=== PATIENT | male | born 1940 | race Two or more races ===

== ENCOUNTER 2022-09-29 18:33 | Inpatient (IN) | payer MEDICARE, OTHER ==
[~2022-09-29] VITALS: Ht 167.6 cm; Wt 82.1 kg
--- NOTE | 2022-09-29 18:48 | NUR ---
assume patient care, sent from [facility]. per ems report, here for medical and crisis eval for "failure to thrive' pt is aao, denies any discomfort upon initial assessment. stable vitals. awaiting md eval.
--- NOTE | 2022-09-29 19:13 | NUR ---
report to sage petty for edison.
--- NOTE | 2022-09-29 19:20 | NUR ---
MOVE SHEET SUBMITTED.
[2022-09-29 19:40] LABS: BASOPHILS # (AUTO) 0.1 K/uL (0.0-0.2); BASOPHILS % (AUTO) 0.8 % (0.0-2.0); HEMATOCRIT 45 % (39-51); HEMOGLOBIN 15.1 g/dL (13.5-17.5); LYMPHOCYTES # (AUTO) 1.7 K/uL (0.8-4.8); LYMPHOCYTES % (AUTO) 20.4 % (20.0-44.0); MEAN CORPUSCULAR HGB CONC 33 g/dl (31.0-36.0); MEAN CORPUSCULAR VOLUME 85 fL (80-96); MONOCYTES # (AUTO) 0.5 K/uL (0.1-1.30); MONOCYTES % (AUTO) 5.9 % (2.0-12.0); NEUTROPHILS # (AUTO) 5.8 K/uL (1.8-8.9); NEUTROPHILS % (AUTO) 70.9 % (43.0-81.0); PLATELET COUNT (AUTO) 225 K/uL (150-450); RED BLOOD CELL COUNT(AUTO) 5.33 MIL/uL (4.5-6.0); WHITE BLOOD COUNT (AUTO) 8.2 K/uL (4.3-11.0)
[2022-09-29 19:48] LABS: CALCIUM, SERUM 9.4 mg/dL (8.5-10.1); CARBON DIOXIDE 25 mmol/L (21-32); CHLORIDE 108 mmol/L (98-107); CREATININE 0.9 mg/dL (0.6-1.3); GLUCOSE 98 mg/dL (74-106); POTASSIUM 4.1 mmol/L (3.5-5.1); SODIUM SERUM 142 mmol/L (136-145); UREA NITROGEN, BLOOD 24 mg/dL (7-18)
[2022-09-29 19:49] LABS: MAGNESIUM 2.3 mg/dL (1.8-2.4)
[2022-09-29] MEDS ORDERED: ONDANSETRON HCL/PF 4 MG/2 ML VIAL IVP PRN (20:30)
[2022-09-29] MEDS ORDERED: ACETAMINOPHEN 325 MG TABLET PO PRN (20:30)
[2022-09-29] MEDS ORDERED: MAG HYDROX/AL HYDROX/SIMETH 30 ML UDC PO PRN (20:30)
[2022-09-29] MEDS ORDERED: MAGNESIUM HYDROXIDE 30 ML UDC PO PRN (20:30)
[2022-09-29] MEDS ORDERED: TEMAZEPAM 15 MG CAPSULE PO PRN (20:30)
[2022-09-29] MEDS ORDERED: Z GUARD REMEDY 4 OZ OINT TP PRN (20:30)
[2022-09-29] MEDS ORDERED: HYDROCODONE/APAP 5/325MG TABLET PO PRN (20:30)
--- NOTE | 2022-09-29 21:48 | NUR ---
REPORT GIVEN TO KAL KHAN
--- NOTE | 2022-09-29 22:05 | NUR ---
MS RN ADMITTING NOTES RECEIVED PATIENT VIA STRETCHER. PATIENT IS AWAKE, A/O X3 WITH EPISODE OF FORGETFULNESS. ABLE TO MAKE NEEDS KNOWN. PATIENT IS ON ROOM AIR TOLERATING WELL, NO SIGNS OF SOB, NOT IN DISTRESS NOTED. PATIENT DENIES ANY PAIN OR DISCOMFORT AT THE MOMENT. SKIN ASSESSMENT IS DONE; NOTED TO HAVE SOME SKIN ISSUE PRESENT DURING ADMISSION. PHOTO OF THE SKIN ISSUE IS DOCUMENTED IN THE CHART WITH PATIENTS CONSENT TO DO BODY CHECK AND TAKE DOCUMENTATION OF THE SKIN ISSUE. PRESENCE OF BILATERAL FOOT EDEMA NOTED TO BE PITTING +1 ON BOTH FEET. BOWEL SOUNDS ACTIVE, LUNG SOUNDS IS CLEAR. IV ACCESS ON LEFT WRIST GAUGE #20 INFUSING 0.9% NS @ 75ML/HR ORDERED BY THE DOCTOR. PATIENT IS ORIENTED TO THE ROOM AND HOW TO USE THE CALL LIGHT. PATIENT VERBALIZES UNDERSTANDING. ALL PATIENT BELONGINGS ARE ACCOUNTED FOR. SAFETY MEASURE IN PLACED; BED LOCKED AND IN LOWEST POSITION, SIDE RAILS UP X3, BED ALARM ON, HOB ELEVATED, CALL LIGHT AND BEDSIDE TABLE WITHIN PATIENT REACH.
[2022-09-29] MEDS: IV NS 0.9% 1,000 ML IV PRN (22:37)
--- NOTE | 2022-09-30 03:50 | NUR ---
RN NOTES PATIENT NEEDS CONSTANT REORIENTATION.
[2022-09-30 06:57] LABS: BASOPHILS % (AUTO) 0.5 % (0.0-2.0); EOSINOPHILS % (AUTO) 1.4 % (0.0-6.0); HEMATOCRIT 43 % (39-51); HEMOGLOBIN 14.3 g/dL (13.5-17.5); LYMPHOCYTES # (AUTO) 1.3 K/uL (0.8-4.8); LYMPHOCYTES % (AUTO) 18.6 % (20.0-44.0); MEAN CORPUSCULAR HGB CONC 33 g/dl (31.0-36.0); MEAN CORPUSCULAR VOLUME 86 fL (80-96); MONOCYTES # (AUTO) 0.4 K/uL (0.1-1.30); MONOCYTES % (AUTO) 6.4 % (2.0-12.0); NEUTROPHILS # (AUTO) 5.1 K/uL (1.8-8.9); NEUTROPHILS % (AUTO) 73.1 % (43.0-81.0); PLATELET COUNT (AUTO) 208 K/uL (150-450); RED BLOOD CELL COUNT(AUTO) 5.03 MIL/uL (4.5-6.0)
--- NOTE | 2022-09-30 07:12 | NUR ---
MS RN CLOSING NOTES PATIENT ON BED. PATIENT IS AWAKE, A/O X3 WITH EPISODE OF FORGETFULNESS. ABLE TO MAKE NEEDS KNOWN. PATIENT IS ON ROOM AIR TOLERATING WELL, NO SIGNS OF SOB, NOT IN DISTRESS NOTED. PATIENT DENIES ANY PAIN OR DISCOMFORT AT THE MOMENT. ALL DUE MEDICATION IS GIVEN ORDERED. PRESENCE OF BILATERAL FOOT EDEMA NOTED TO BE PITTING +1 ON BOTH FEET. IV ACCESS ON LEFT WRIST GAUGE #20 INFUSING 0.9% NS @ 75ML/HR. SAFETY MEASURE IN PLACED; BED LOCKED AND IN LOWEST POSITION, SIDE RAILS UP X3, BED ALARM ON, HOB ELEVATED, CALL LIGHT AND BEDSIDE TABLE WITHIN PATIENT REACH. WILL ENDORSE TO NEXT SHIFT NURSE FOR CONTINUITY OF CARE.
[2022-09-30] MEDS: PANTOPRAZOLE 40 MG TABLET.DR PO SCH (07:22)
[2022-09-30 07:23] LABS: CALCIUM, SERUM 8.9 mg/dL (8.5-10.1); CARBON DIOXIDE 26 mmol/L (21-32); CHLORIDE 106 mmol/L (98-107); CREATININE 0.8 mg/dL (0.6-1.3); GLUCOSE 98 mg/dL (74-106); MAGNESIUM 2.4 mg/dL (1.8-2.4); PHOSPHORUS 2.6 mg/dL (2.5-4.9); POTASSIUM 3.7 mmol/L (3.5-5.1); SODIUM SERUM 139 mmol/L (136-145); UREA NITROGEN, BLOOD 19 mg/dL (7-18)
[2022-09-30 07:30] LABS: CHOLESTEROL 130 mg/dL (<200); HDL CHOLESTEROL 49 mg/dL (40-60); LDL 81 mg/dL (0-99); THYROID STIMULATING HORMONE 2.378 uIU/mL (0.358-3.74); TRIGLYCERIDES 54 mg/dL (30-150)
--- NOTE | 2022-09-30 07:30 | NUR ---
OPENING NOTE RECEIVED PATIENT RESTING IN BED COMFORTABLY BUT AROUSABLE, NO SIGNS OF IN DISTRESS, SAFETY MEASURES IN PLACED, BED IN LOW POSITION LOCKED, SIDE RAILS UPX3, CALL LIGHT WITHIN REACHED.
[2022-09-30] MEDS ORDERED: CHOL100043 PO (09:52)
[2022-09-30] MEDS ORDERED: ACET-868 PO (09:52)
[2022-09-30] MEDS ORDERED: BENZ1LOZ12 MM (09:52)
[2022-09-30] MEDS ORDERED: FURO-145 PO (09:52)
[2022-09-30] MEDS ORDERED: PHEN-824 PO (09:52)
[2022-09-30] MEDS ORDERED: MAGN400O6 PO (09:52)
[2022-09-30] MEDS ORDERED: MULT-447 PO (09:52)
[2022-09-30] MEDS ORDERED: ACET-2605 PO (09:52)
[2022-09-30] MEDS ORDERED: NA P133E RC (09:52)
[2022-09-30] MEDS ORDERED: CRAN425C6 PO (09:52)
[2022-09-30] MEDS ORDERED: POLY15DR40 EACHEYE (09:52)
[2022-09-30] MEDS ORDERED: BISA10SU11 RC (09:52)
[2022-09-30] MEDS ORDERED: SENN-261 PO (09:52)
[2022-09-30] MEDS ORDERED: SILVER NITRATE APPLICATOR 1 EA BOX TP STA (11:32)
[2022-09-30] MEDS ORDERED: LIDOCAINE 1%-EPI 1:200,000 SDV 10 ML VIAL IJ STA (11:32)
[2022-09-30 16:00] VITALS: BP 121/64
[2022-09-30] MEDS: ENSURE ENLIVE 237 ML LIQUID (VANILLA) PO SCH (16:22)
[2022-09-30] MEDS: PROSOURCE / PROSTAT (PYXIS) 30 ML UDC GT SCH (16:22)
--- NOTE | 2022-09-30 18:36 | NUR ---
CLOSING NOTE PATIENT IS IN BED COMFORTABLY, AWAKE, ALERT, ORIENTEDX2, WITH INTERMITTENT CONFUSION, NO SIGNS OF IN DISTRESS, NO COMPLAINT OF PAIN, UNLABORED BREATHING ON ROOM AIR, SAFETY MEASURES APPLIED, BED IN LOW POSITION LOCKED, SIDE RAILS UPX3, CALL LIGHT WITHIN REACH.
--- NOTE | 2022-09-30 19:17 | NUR ---
PATIENT IS BEING DISCHARGE TO [facility] VIA AMBULANCE, PATIENT IS IN STABLE CONDITION, G TUBE FEEDING DISCONTINUE, IV LINE WAS DISCONTINUED.
--- NOTE | 2022-09-30 19:30 | NUR ---
RN MS OPENING NOTES RECEIVED PATIENT IN BED, ON MODERATE HIGH BACK REST POSITION. A/O X 3. ON ROOM AIR.ON MODERATE HIGH BACK REST POSITION. NO COMPLAIN OF PAIN OR ANY DISCOMFORT AT THIS TIME. NO ASPIRATION NOTED.NO CHEST PAIN OR DISTRESS AT THIS TIME. WITH IV ACCESS AT L WRITS#20G WITH NS 1L AT 75ML/HR INFUSING WELL. KEPT BED ON LOWER LOCKED POSITION, KEPT SIDE RAILS UP ,X 2 ALL THEN TIME. PATIENT IS CONTINENT USES URINAL AT BEDSIDE. ET CALL LIGHT WITHIN AT REACH. WILL CONTINUE TO MONITOR.
--- NOTE | 2022-09-30 21:30 | NUR ---
RN NOTES PATIENT REMOVED HIS IV ACCIDENTALLY. INSERTED NEW IV ACCESS AT LEFT WRIST #22G WITH NS 1L AT 75ML/HR INFUSING WELL. WILL CONTINUE TO MONITOR.
[2022-10-01] VITALS: BP 121/64
[2022-10-01] MEDS: IV NS 0.9% 1,000 ML IV PRN (04:21)
--- NOTE | 2022-10-01 06:26 | NUR ---
RN MS CLOSING NOTES PATIENT IS IN BED, AWAKE AND WITH EPISODES OF CONFUSION. A/O X 3 ON MODERATE HIGH BACK REST POSITION, ON ROOM AIR SATURATING WELL ON BED REST FOR NOW. CONTINENT USES URINAL. ON CARDIAC DIET. WITH IV ACCESS AT LEFT WRIST #22G WITH NS1L AT75ML/HR INFUSING WELL. NO PAIN OR DISCOMFORT NOTED AT THIS TIME. NO CHEST PAIN OR ANY DISTRESS NOTED. KEPT BED ON LOWER LOCKED POSITION, KEPT SIDE RAILS X2 UP A;LL THE TIME, KEPT CALL LIGHT WITHIN AT REACH.ALL DUE MEDICATIONS GIVEN ORDERED. PM CARE RENDERED AND ALL NEEDS ATTENDED. WILL ENDORSED TO AM SHIFT FOR ANTHONY.
[2022-10-01 07:17] LABS: BASOPHILS % (AUTO) 0.5 % (0.0-2.0); HEMATOCRIT 45 % (39-51); HEMOGLOBIN 14.3 g/dL (13.5-17.5); LYMPHOCYTES # (AUTO) 1.5 K/uL (0.8-4.8); LYMPHOCYTES % (AUTO) 20.7 % (20.0-44.0); MEAN CORPUSCULAR HGB CONC 32 g/dl (31.0-36.0); MEAN CORPUSCULAR VOLUME 89 fL (80-96); MONOCYTES # (AUTO) 0.6 K/uL (0.1-1.30); MONOCYTES % (AUTO) 8.5 % (2.0-12.0); NEUTROPHILS # (AUTO) 4.9 K/uL (1.8-8.9); NEUTROPHILS % (AUTO) 68.3 % (43.0-81.0); PLATELET COUNT (AUTO) 187 K/uL (150-450); RED BLOOD CELL COUNT(AUTO) 5.05 MIL/uL (4.5-6.0); WHITE BLOOD COUNT (AUTO) 7.2 K/uL (4.3-11.0)
[2022-10-01 07:18] LABS: CALCIUM, SERUM 8.8 mg/dL (8.5-10.1); CARBON DIOXIDE 20 mmol/L (21-32); CHLORIDE 108 mmol/L (98-107); CREATININE 0.6 mg/dL (0.6-1.3); GLUCOSE 90 mg/dL (74-106); POTASSIUM 4.1 mmol/L (3.5-5.1); SODIUM SERUM 137 mmol/L (136-145); UREA NITROGEN, BLOOD 16 mg/dL (7-18)
[2022-10-01] MEDS: PANTOPRAZOLE 40 MG TABLET.DR PO SCH (07:26)
[2022-10-01 08:00] VITALS: BP 142/86
[2022-10-01] MEDS: PROSOURCE / PROSTAT (PYXIS) 30 ML UDC GT SCH ×2 (08:28→16:07)
[2022-10-01] MEDS: ENSURE ENLIVE 237 ML LIQUID (VANILLA) PO SCH ×2 (08:28→16:07)
[2022-10-01 16:00] VITALS: BP 120/73
--- NOTE | 2022-10-01 19:31 | NUR ---
OPENING NOTE PATIENT IS IN BED COMFORTABLY, AWAKE, ALERT, ORIENTED X2- 3, WITH INTERMITTENT CONFUSION, NO SIGNS OF IN DISTRESS, NO COMPLAINT OF PAIN, UNLABORED BREATHING ON ROOM AIR, SAFETY MEASURES APPLIED, BED IN LOW POSITION LOCKED, SIDE RAILS UPX3, CALL LIGHT WITHIN REACH.
[2022-10-01 21:32] VITALS: BP 107/62
--- NOTE | 2022-10-01 22:11 | NUR ---
RN NOTE NOTED IV PULLED OUT CATHETER INTACT, NO REDNESS OR PAIN AT SITE. COVERED WITH DRY DRESSING. NEW IV SITE LAC #22G TOLERATED WELL.
[2022-10-02 04:28] VITALS: BP 14/71
--- NOTE | 2022-10-02 06:33 | NUR ---
CLOSING NOTE PATIENT IS IN BED COMFORTABLY, AWAKE, ALERT, ORIENTED X2- 3, WITH INTERMITTENT CONFUSION, NO SIGNS OF DISTRESS, NO COMPLAINT OF PAIN, UNLABORED BREATHING ON ROOM AIR, SAFETY MEASURES APPLIED, BED IN LOW POSITION LOCKED, SIDE RAILS UPX3, CALL LIGHT WITHIN REACH.WILL ENODRSE CARE TO DAY SHIFT NURSE.
[2022-10-02 08:00] VITALS: BP 123/98
[2022-10-02] MEDS: PANTOPRAZOLE 40 MG TABLET.DR PO SCH (08:07)
[2022-10-02] MEDS: PROSOURCE / PROSTAT (PYXIS) 30 ML UDC GT SCH (08:11)
[2022-10-02] MEDS: ENSURE ENLIVE 237 ML LIQUID (VANILLA) PO SCH (08:13)
--- NOTE | 2022-10-02 09:00 | NUR ---
RN OPENING NOTE PATIENT IS IN BED COMFORTABLY, AWAKE, ALERT, ORIENTED X2- 3, WITH INTERMITTENT CONFUSION, NO SIGNS OF IN DISTRESS, NO COMPLAINT OF PAIN, UNLABORED BREATHING ON ROOM AIR, SAFETY MEASURES APPLIED, BED IN LOW POSITION LOCKED, SIDE RAILS UPX3, CALL LIGHT WITHIN REACH. WILL CONT TO MNIT
--- NOTE | 2022-10-02 15:09 | NUR ---
ENVIRONMENTAL PROTECTION ECONOMIST NOTE: RECEIVED ORDER FOR D/C TO [facility] GAVE REPORT DONNA BOWDEN. PT IS [id number]. ABLE TO DENY PAIR OR DISCOMFORT.. STABLE ON ROOM AIR. NO S/S DISTRESS. D/C INTSTRUCTION GIVEN. VERBALIZE UNDERSTANDING, ALL BELONGINGS ACCOUNTED FOR. BELONGING SHEET SIGNED. IV ACCESS REMOVED. CATHERER TIP INTACT. PRESSURE DRESSING APPLIED, ID BAND REMOVED. PICKED UP [id number] IN STABLE CONDITION
== END 2022-10-02 15:00 | DRG 640 ==
LOC: ER 18:33 → MEDSG1 21:34
PROVIDERS: ADMIT Nurse Practitioner Acute Care; ATTEND Internal Medicine
PROC: 0JB00ZX Excision of Scalp Subcutaneous Tissue and Fascia, Open Approach, Diagnostic (ICD-10-PCS; principal; 2022-09-30)
DX: R62.7 Adult failure to thrive (principal); G93.41 Metabolic encephalopathy; D68.59 Other primary thrombophilia; E44.0 Moderate protein-calorie malnutrition; E86.0 Dehydration; Z20.822 Contact with and (suspected) exposure to COVID-19; R79.89 Other specified abnormal findings of blood chemistry; I87.2 Venous insufficiency (chronic) (peripheral); M19.90 Unspecified osteoarthritis, unspecified site; Z74.09 Other reduced mobility; Z87.19 Personal history of other diseases of the digestive system; Z86.16 Personal history of COVID-19; K40.90 Unilateral inguinal hernia, without obstruction or gangrene, not specified as recurrent; F03.90 Unspecified dementia, unspecified severity, without behavioral disturbance, psychotic disturbance, mood disturbance, and anxiety; D23.4 Other benign neoplasm of skin of scalp and neck; I10 Essential (primary) hypertension
CPT/HCPCS: 36415; 71045-TC; 80048-TC; 80061-TC; 83690-TC; 83735-TC; 84100-TC; 84443-TC; 84484-TC; 85025-TC; 87081-TC; 97110-TC; 97112-TC; 97530-TC; A4223; C9803; G0378; J3490; J7030

== ENCOUNTER 2023-06-28 18:02 | Inpatient (IN) | payer MEDICARE, OTHER ==
[~2023-06-28] VITALS: Ht 172.7 cm; Wt 88.0 kg
[~2023-06-28 18:02] MED LIST: ACET-2605 PO; ACET-868 PO; BENZ1LOZ12 MM; BISA10SU11 RC; CHOL100043 PO; CRAN425C6 PO; FURO-145 PO; MAGN400O6 PO; MULT-447 PO; NA P133E RC; PHEN-824 PO; POLY15DR40 EACHEYE; SENN-261 PO
[2023-06-28 18:14] VITALS: O2SAT 97
[2023-06-28 19:04] LABS: BASOPHILS % (AUTO) 0.7 % (0.0-2.0); EOSINOPHILS # (AUTO) 0.1 K/uL (0.0-0.7); HEMATOCRIT 46 % (39-51); HEMOGLOBIN 15.1 g/dL (13.5-17.5); LYMPHOCYTES # (AUTO) 1.2 K/uL (0.8-4.8); LYMPHOCYTES % (AUTO) 17.8 % (20.0-44.0); MEAN CORPUSCULAR HEMOGLOBIN 29 PG (26.0-33.0); MEAN CORPUSCULAR HGB CONC 33 g/dl (31.0-36.0); MEAN CORPUSCULAR VOLUME 89 fL (80-96); MONOCYTES # (AUTO) 0.5 K/uL (0.1-1.30); MONOCYTES % (AUTO) 7.4 % (2.0-12.0); NEUTROPHILS # (AUTO) 4.7 K/uL (1.8-8.9); NEUTROPHILS % (AUTO) 72.1 % (43.0-81.0); PLATELET COUNT (AUTO) 207 K/uL (150-450); RED BLOOD CELL COUNT(AUTO) 5.16 MIL/uL (4.5-6.0); WHITE BLOOD COUNT (AUTO) 6.5 K/uL (4.3-11.0)
[2023-06-28] MEDS ORDERED: DOCU100T2 PO (19:04)
[2023-06-28 19:18] LABS: CALCIUM, SERUM 9.4 mg/dL (8.5-10.1); CARBON DIOXIDE 28 mmol/L (21-32); CHLORIDE 106 mmol/L (98-107); CREATININE 0.9 mg/dL (0.6-1.3); GLUCOSE 103 mg/dL (74-106); POTASSIUM 3.9 mmol/L (3.5-5.1); SODIUM SERUM 140 mmol/L (136-145); UREA NITROGEN, BLOOD 20 mg/dL (7-18)
[2023-06-28 19:33] LABS: ALANINE AMINOTRANSFERASE 16 U/L (12-78); ALBUMIN 3.3 g/dL (3.4-5.0); ALKALINE PHOSPHATASE 166 U/L (46-116); ASPARTATE AMINOTRANSFERASE 17 U/L (15-37); BILIRUBIN,DIRECT 0.2 mg/dL (0.0-0.2); BILIRUBIN,TOTAL 0.6 mg/dL (0.2-1.0); NT-PRO BNP 108 pg/mL (0-125); TOTAL PROTEIN, SERUM 7.5 g/dL (6.4-8.2)
[2023-06-28] MEDS ORDERED: MORPHINE SULFATE INJ 2 MG/ML DISP.SYRIN IV PRN (22:30)
[2023-06-28] MEDS ORDERED: hydrALAZINE HCL IV 20 MG VIAL IV PRN (22:30)
[2023-06-28] MEDS ORDERED: ONDANSETRON HCL/PF 4 MG/2 ML VIAL IVP PRN (22:30)
[2023-06-28] MEDS ORDERED: ACETAMINOPHEN 325 MG TABLET PO PRN (22:30)
[2023-06-29] VITALS: BP 158/70; TEMP 97.7; O2SAT 98
[2023-06-29 07:18] LABS: BASOPHILS % (AUTO) 0.5 % (0.0-2.0); EOSINOPHILS # (AUTO) 0.2 K/uL (0.0-0.7); EOSINOPHILS % (AUTO) 2.8 % (0.0-6.0); HEMATOCRIT 40 % (39-51); LYMPHOCYTES # (AUTO) 1.4 K/uL (0.8-4.8); LYMPHOCYTES % (AUTO) 21.6 % (20.0-44.0); MEAN CORPUSCULAR HEMOGLOBIN 30 PG (26.0-33.0); MEAN CORPUSCULAR HGB CONC 35 g/dl (31.0-36.0); MEAN CORPUSCULAR VOLUME 87 fL (80-96); MONOCYTES # (AUTO) 0.5 K/uL (0.1-1.30); MONOCYTES % (AUTO) 7.8 % (2.0-12.0); NEUTROPHILS # (AUTO) 4.5 K/uL (1.8-8.9); NEUTROPHILS % (AUTO) 67.3 % (43.0-81.0); PLATELET COUNT (AUTO) 180 K/uL (150-450); RED BLOOD CELL COUNT(AUTO) 4.64 MIL/uL (4.5-6.0); RED CELL DISTRIBUTION WIDTH 14.4 % (11.5-15.0); WHITE BLOOD COUNT (AUTO) 6.7 K/uL (4.3-11.0)
[2023-06-29 07:38] LABS: CALCIUM, SERUM 8.8 mg/dL (8.5-10.1); CREATININE 0.7 mg/dL (0.6-1.3); MAGNESIUM 2.4 mg/dL (1.8-2.4); PHOSPHORUS 3.1 mg/dL (2.5-4.9); POTASSIUM 3.6 mmol/L (3.5-5.1); TOTAL PROTEIN, SERUM 6.6 g/dL (6.4-8.2)
[2023-06-29 08:00] VITALS: BP 149/94; TEMP 98; O2SAT 96
[2023-06-29] MEDS: FUROSEMIDE 40 MG/4 ML VIAL IV SCH ×2 (08:36→16:25)
[2023-06-29] MEDS: HEPARIN SODIUM, PORCINE 5000 UNITS/1 ML VIAL SQ SCH ×3 (09:00→21:27)
[2023-06-29] MEDS ORDERED: CEFTRIAXONE 1 G in IV D5W 50 ML IV SCH (15:00)
[2023-06-29 16:00] VITALS: BP 138/79; TEMP 98.1; O2SAT 98
[2023-06-29 21:14] VITALS: BP 165/87; TEMP 97.9; O2SAT 97
[2023-06-30 07:00] VITALS: BP 133/77; TEMP 97.9; O2SAT 97
[2023-06-30 07:21] LABS: BASOPHILS % (AUTO) 0.4 % (0.0-2.0); EOSINOPHILS # (AUTO) 0.3 K/uL (0.0-0.7); EOSINOPHILS % (AUTO) 3.6 % (0.0-6.0); HEMATOCRIT 47 % (39-51); HEMOGLOBIN 15.6 g/dL (13.5-17.5); LYMPHOCYTES # (AUTO) 1.3 K/uL (0.8-4.8); LYMPHOCYTES % (AUTO) 17.5 % (20.0-44.0); MEAN CORPUSCULAR HEMOGLOBIN 29 PG (26.0-33.0); MEAN CORPUSCULAR HGB CONC 33 g/dl (31.0-36.0); MEAN CORPUSCULAR VOLUME 89 fL (80-96); MONOCYTES # (AUTO) 0.5 K/uL (0.1-1.30); MONOCYTES % (AUTO) 7.1 % (2.0-12.0); NEUTROPHILS # (AUTO) 5.2 K/uL (1.8-8.9); NEUTROPHILS % (AUTO) 71.4 % (43.0-81.0); PLATELET COUNT (AUTO) 183 K/uL (150-450); RED BLOOD CELL COUNT(AUTO) 5.31 MIL/uL (4.5-6.0); RED CELL DISTRIBUTION WIDTH 14.3 % (11.5-15.0); WHITE BLOOD COUNT (AUTO) 7.3 K/uL (4.3-11.0)
[2023-06-30 07:42] LABS: CALCIUM, SERUM 9.3 mg/dL (8.5-10.1); CREATININE 0.7 mg/dL (0.6-1.3); MAGNESIUM 2.6 mg/dL (1.8-2.4); PHOSPHORUS 3.4 mg/dL (2.5-4.9)
[2023-06-30] MEDS: FUROSEMIDE 40 MG/4 ML VIAL IV SCH (09:01)
[2023-06-30] MEDS: HEPARIN SODIUM, PORCINE 5000 UNITS/1 ML VIAL SQ SCH (09:05)
[2023-06-30] MEDS ORDERED: FURO-145 PO (11:37)
[2023-06-30] MEDS ORDERED: CEPH500C2 PO (11:37)
== END 2023-06-30 16:00 | disposition home health service (06) | DRG 603 ==
LOC: ER 18:05 → MED 22:07
PROVIDERS: ADMIT Internal Medicine; ATTEND Student in an Organized Health Care Education/Training Program
DX: L03.115 Cellulitis of right lower limb (principal); E44.1 Mild protein-calorie malnutrition; G93.49 Other encephalopathy; I50.30 Unspecified diastolic (congestive) heart failure; L97.819 Non-pressure chronic ulcer of other part of right lower leg with unspecified severity; R62.7 Adult failure to thrive; K59.00 Constipation, unspecified; R60.9 Edema, unspecified; F03.90 Unspecified dementia, unspecified severity, without behavioral disturbance, psychotic disturbance, mood disturbance, and anxiety; Z86.16 Personal history of COVID-19; E88.09 Other disorders of plasma-protein metabolism, not elsewhere classified; K40.90 Unilateral inguinal hernia, without obstruction or gangrene, not specified as recurrent; Z87.39 Personal history of other diseases of the musculoskeletal system and connective tissue; H35.039 Hypertensive retinopathy, unspecified eye; Z79.899 Other long term (current) drug therapy; M19.90 Unspecified osteoarthritis, unspecified site; L60.3 Nail dystrophy; I25.9 Chronic ischemic heart disease, unspecified; Z74.09 Other reduced mobility; I11.0 Hypertensive heart disease with heart failure; I83.018 Varicose veins of right lower extremity with ulcer other part of lower leg
CPT/HCPCS: 36415; 71045-TC; 80048-TC; 80053-TC; 80076-TC; 83605-TC; 83735-TC; 83880; 84100-TC; 84484-TC; 85025-TC; 87081-TC; 93307-TC; 97110-TC; 97112-TC; 97530-TC; A4223; G0378; J0696; J1644; J1940; J7050; J7060

== ENCOUNTER 2023-08-18 18:08 | Inpatient (IN) | payer MEDICARE, OTHER ==
[~2023-08-18] VITALS: Ht 172.7 cm; Wt 78.5 kg
[~2023-08-18 18:08] MED LIST changes: -BENZ1LOZ12 MM; +CEPH500C2 PO; +DOCU100T2 PO
[2023-08-18] MEDS: VANCOMYCIN 1 GM in IV D5W 250 ML IV ONE (18:30)
[2023-08-18] MEDS ORDERED: FURO-144 PO (18:36)
[2023-08-18 18:50] LABS: BASOPHILS # (AUTO) 0.1 K/uL (0.0-0.2); BASOPHILS % (AUTO) 0.9 % (0.0-2.0); EOSINOPHILS # (AUTO) 0.2 K/uL (0.0-0.7); HEMATOCRIT 43 % (39-51); HEMOGLOBIN 14.4 g/dL (13.5-17.5); LYMPHOCYTES % (AUTO) 13.5 % (20.0-44.0); MEAN CORPUSCULAR HEMOGLOBIN 29 PG (26.0-33.0); MEAN CORPUSCULAR HGB CONC 33 g/dl (31.0-36.0); MEAN CORPUSCULAR VOLUME 88 fL (80-96); MONOCYTES # (AUTO) 0.5 K/uL (0.1-1.30); MONOCYTES % (AUTO) 6.8 % (2.0-12.0); NEUTROPHILS # (AUTO) 5.5 K/uL (1.8-8.9); NEUTROPHILS % (AUTO) 75.8 % (43.0-81.0); PLATELET COUNT (AUTO) 244 K/uL (150-450); RED BLOOD CELL COUNT(AUTO) 4.91 MIL/uL (4.5-6.0); WHITE BLOOD COUNT (AUTO) 7.3 K/uL (4.3-11.0)
[2023-08-18 18:55] LABS: CALCIUM, SERUM 9.5 mg/dL (8.5-10.1); CARBON DIOXIDE 25 mmol/L (21-32); CHLORIDE 106 mmol/L (98-107); CREATININE 1.1 mg/dL (0.6-1.3); GLUCOSE 126 mg/dL (74-106); POTASSIUM 4.7 mmol/L (3.5-5.1); SODIUM SERUM 137 mmol/L (136-145); UREA NITROGEN, BLOOD 30 mg/dL (7-18)
[2023-08-18] MEDS: PIPERACILLIN /TAZOBACTAM 3.375 G in IV D5W 50 ML IV ONE (19:00)
[2023-08-18 19:10] LABS: ALANINE AMINOTRANSFERASE 17 U/L (12-78); ALBUMIN 3.2 g/dL (3.4-5.0); ALKALINE PHOSPHATASE 171 U/L (46-116); ASPARTATE AMINOTRANSFERASE 22 U/L (15-37); BILIRUBIN,DIRECT 0.1 mg/dL (0.0-0.2); BILIRUBIN,TOTAL 0.4 mg/dL (0.2-1.0); TOTAL PROTEIN, SERUM 7.5 g/dL (6.4-8.2)
[2023-08-18 19:14] LABS: LACTIC ACID 1.8 mmol/L (0.4-2.0)
[2023-08-18 19:44] LABS: APPEARANCE,URINE Clear (CLEAR); BILIRUBIN,URINE Negative (NEGATIVE); BLOOD, URINE Trace-lysed Ery/uL (NEGATIVE); COLOR,URINE YELLOW (YELLOW); KETONES,URINE Negative (NEGATIVE); LEUKOCYTE ESTERASE ,URINE Negative (NEGATIVE); NITRITE, URINE Negative (NEGATIVE); PH,URINE 5.5 (5.0-8.0); PROTEIN,URINE Negative (NEGATIVE); UGLUCOSE Negative (NEGATIVE); UROBILINOGEN,URINE 0.2 EU/dL (0.2)
[2023-08-18] MEDS ORDERED: VANCOMYCIN 1 GM /D5W 250 ML PB IV ONE (19:52)
[2023-08-18 20:08] LABS: ADD URINE CULTURE NO; BACTERIA,URINE None seen /HPF (None Seen); RBC,URINE 0-2 /HPF (0-2); SQUAMOUS EPITHELIAL CELL,UR None Seen /HPF (None Seen); WBC,URINE NONE SEEN /HPF (0-3)
[2023-08-18] MEDS ORDERED: ONDANSETRON HCL/PF 4 MG/2 ML VIAL IVP PRN (21:30)
[2023-08-18] MEDS ORDERED: MAG HYDROX/AL HYDROX/SIMETH 30 ML UDC PO PRN (21:30)
[2023-08-18] MEDS ORDERED: HYDROCODONE/APAP 5/325MG TABLET PO PRN (21:30)
[2023-08-18] MEDS ORDERED: MAGNESIUM HYDROXIDE 30 ML UDC PO PRN (21:30)
[2023-08-18] MEDS ORDERED: ACETAMINOPHEN 325 MG TABLET PO PRN (21:30)
[2023-08-18] MEDS ORDERED: ZOLPIDEM TARTRATE 5 MG TABLET PO PRN (21:30)
[2023-08-18 23:00] VITALS: BP 144/78; TEMP 97.9; O2SAT 98
[2023-08-18] MEDS: ENOXAPARIN SODIUM 40 MG/0.4 ML DISP.SYRIN SQ SCH (23:27)
[2023-08-19 06:59] LABS: BASOPHILS # (AUTO) 0.1 K/uL (0.0-0.2); BASOPHILS % (AUTO) 0.7 % (0.0-2.0); EOSINOPHILS # (AUTO) 0.3 K/uL (0.0-0.7); EOSINOPHILS % (AUTO) 3.6 % (0.0-6.0); HEMATOCRIT 41 % (39-51); HEMOGLOBIN 13.9 g/dL (13.5-17.5); LYMPHOCYTES # (AUTO) 1.5 K/uL (0.8-4.8); LYMPHOCYTES % (AUTO) 20.1 % (20.0-44.0); MEAN CORPUSCULAR HEMOGLOBIN 30 PG (26.0-33.0); MEAN CORPUSCULAR HGB CONC 34 g/dl (31.0-36.0); MEAN CORPUSCULAR VOLUME 89 fL (80-96); MONOCYTES # (AUTO) 0.6 K/uL (0.1-1.30); MONOCYTES % (AUTO) 8.4 % (2.0-12.0); NEUTROPHILS % (AUTO) 67.2 % (43.0-81.0); PLATELET COUNT (AUTO) 206 K/uL (150-450); RED BLOOD CELL COUNT(AUTO) 4.62 MIL/uL (4.5-6.0); RED CELL DISTRIBUTION WIDTH 14.1 % (11.5-15.0); WHITE BLOOD COUNT (AUTO) 7.4 K/uL (4.3-11.0)
[2023-08-19 07:00] VITALS: BP 119/73; TEMP 97.7; O2SAT 98
[2023-08-19 07:40] LABS: CHOLESTEROL 144 mg/dL (<200); HDL CHOLESTEROL 52 mg/dL (40-60); LDL 75 mg/dL (0-99); THYROID STIMULATING HORMONE 3.064 uIU/mL (0.358-3.74); TRIGLYCERIDES 62 mg/dL (30-150)
[2023-08-19] MEDS: PANTOPRAZOLE 40 MG TABLET.DR PO SCH (07:45)
[2023-08-19 08:14] LABS: CALCIUM, SERUM 8.9 mg/dL (8.5-10.1); CARBON DIOXIDE 22 mmol/L (21-32); CHLORIDE 107 mmol/L (98-107); CREATININE 0.9 mg/dL (0.6-1.3); GLUCOSE 89 mg/dL (74-106); MAGNESIUM 2.3 mg/dL (1.8-2.4); PHOSPHORUS 3.5 mg/dL (2.5-4.9); POTASSIUM 3.9 mmol/L (3.5-5.1); SODIUM SERUM 138 mmol/L (136-145); UREA NITROGEN, BLOOD 21 mg/dL (7-18)
[2023-08-19] MEDS: FUROSEMIDE 40 MG TABLET PO SCH (08:40)
[2023-08-19] MEDS: SENNOSIDES 8.6 MG TABLET PO SCH (08:40)
[2023-08-19] MEDS: DOCUSATE SODIUM 100 MG CAPSULE PO SCH (08:40)
[2023-08-19] MEDS: CHOLECALCIFEROL 1,000 UNIT TABLET (VIT D3) PO SCH (08:41)
[2023-08-19] MEDS: VANCOMYCIN 750 MG in IV D5W 250 ML IV SCH (10:35)
[2023-08-19 15:54] VITALS: BP 106/60; TEMP 97.5; O2SAT 99
[2023-08-19 20:00] VITALS: BP 129/68; TEMP 97.7; O2SAT 99
[2023-08-19 21:00] VITALS: BP 121/72; TEMP 98; O2SAT 98
[2023-08-20 07:01] LABS: CALCIUM, SERUM 8.9 mg/dL (8.5-10.1); CREATININE 0.9 mg/dL (0.6-1.3); POTASSIUM 3.9 mmol/L (3.5-5.1)
[2023-08-20 08:00] VITALS: BP 137/75; TEMP 97.5; O2SAT 97
[2023-08-20 16:00] VITALS: BP 131/91; TEMP 97.7; O2SAT 95
[2023-08-20 20:00] VITALS: BP 121/68; TEMP 97.9; O2SAT 99
[2023-08-21 06:54] LABS: CREATININE 0.8 mg/dL (0.6-1.3)
[2023-08-21 08:00] VITALS: BP 143/93; TEMP 97.9; O2SAT 99
[2023-08-21] MEDS ORDERED: PANT40TA49 PO (11:32)
[2023-08-21] MEDS ORDERED: VANC750F2 IV (11:32)
[2023-08-21] MEDS: Z GUARD REMEDY 4 OZ OINT TP PRN (13:17)
== END 2023-08-21 17:00 | DRG 602 ==
LOC: ER 18:17 → MED 20:41
PROVIDERS: ATTEND Nurse Practitioner Acute Care
DX: L03.115 Cellulitis of right lower limb (principal); G93.41 Metabolic encephalopathy; E44.1 Mild protein-calorie malnutrition; D68.59 Other primary thrombophilia; I87.8 Other specified disorders of veins; L03.116 Cellulitis of left lower limb; I50.9 Heart failure, unspecified; I11.0 Hypertensive heart disease with heart failure; Z20.822 Contact with and (suspected) exposure to COVID-19; F02.80 Dementia in other diseases classified elsewhere, unspecified severity, without behavioral disturbance, psychotic disturbance, mood disturbance, and anxiety; G30.9 Alzheimer's disease, unspecified; Z86.16 Personal history of COVID-19; K40.90 Unilateral inguinal hernia, without obstruction or gangrene, not specified as recurrent; H35.039 Hypertensive retinopathy, unspecified eye; Z79.899 Other long term (current) drug therapy; R62.7 Adult failure to thrive; K59.00 Constipation, unspecified; M19.90 Unspecified osteoarthritis, unspecified site; E66.9 Obesity, unspecified; Z68.26 Body mass index [BMI] 26.0-26.9, adult; Z82.49 Family history of ischemic heart disease and other diseases of the circulatory system; R60.9 Edema, unspecified; E88.09 Other disorders of plasma-protein metabolism, not elsewhere classified; I87.301 Chronic venous hypertension (idiopathic) without complications of right lower extremity
CPT/HCPCS: 36415; 71045-TC; 80048-TC; 80061-TC; 80076-TC; 80202-TC; 81001; 83605-TC; 83735-TC; 83880; 84100-TC; 84443-TC; 84484-TC; 85025-TC; 87040-TC; 87081-TC; 93970-TC; 97110-TC; 97530-TC; A4223; G0378; J1650; J2543; J3370; J3371; J7030; J7060

== ENCOUNTER 2024-07-04 15:04 | Inpatient (IN) | payer MEDICARE, OTHER ==
[~2024-07-04] VITALS: Ht 172.7 cm; Wt 79.8 kg
[~2024-07-04 15:04] MED LIST changes: -ACET-2605 PO; -ACET-868 PO; -BISA10SU11 RC; -CEPH500C2 PO; +FURO-144 PO; -FURO-145 PO; -MAGN400O6 PO; -MULT-447 PO; -NA P133E RC; +PANT40TA49 PO; -PHEN-824 PO; -POLY15DR40 EACHEYE; +VANC750F2 IV
[2024-07-04] MEDS: IV NS 0.9% 500 ML BAG IV ONE (16:05)
[2024-07-04 16:08] LABS: BASOPHILS # (AUTO) 0.2 K/uL (0.0-0.2); BASOPHILS % (AUTO) 2.6 % (0.0-2.0); EOSINOPHILS # (AUTO) 0.3 K/uL (0.0-0.7); EOSINOPHILS % (AUTO) 4.2 % (0.0-6.0); HEMATOCRIT 41 % (39-51); HEMOGLOBIN 13.9 g/dL (13.5-17.5); LYMPHOCYTES # (AUTO) 0.7 K/uL (0.8-4.8); LYMPHOCYTES % (AUTO) 9.6 % (20.0-44.0); MEAN CORPUSCULAR HEMOGLOBIN 30 PG (26.0-33.0); MEAN CORPUSCULAR HGB CONC 34 g/dl (31.0-36.0); MEAN CORPUSCULAR VOLUME 90 fL (80-96); MONOCYTES # (AUTO) 0.6 K/uL (0.1-1.30); MONOCYTES % (AUTO) 8.2 % (2.0-12.0); NEUTROPHILS # (AUTO) 5.4 K/uL (1.8-8.9); NEUTROPHILS % (AUTO) 75.4 % (43.0-81.0); PLATELET COUNT (AUTO) 195 K/uL (150-450); RED BLOOD CELL COUNT(AUTO) 4.59 MIL/uL (4.5-6.0); RED CELL DISTRIBUTION WIDTH 14.3 % (11.5-15.0); WHITE BLOOD COUNT (AUTO) 7.1 K/uL (4.3-11.0)
[2024-07-04] MEDS: CEFEPIME 1 GM in IV D5W 50 ML IV ONE (16:09)
[2024-07-04] MEDS: VANCOMYCIN 1 GM in IV D5W 250 ML IV ONE (16:11)
[2024-07-04] MEDS ORDERED: MAGN400O6 PO (16:34)
[2024-07-04] MEDS ORDERED: ACET-73 PO (16:34)
[2024-07-04 16:35] LABS: ALANINE AMINOTRANSFERASE 22 U/L (12-78); ALKALINE PHOSPHATASE 151 U/L (46-116); ASPARTATE AMINOTRANSFERASE 21 U/L (15-37); BILIRUBIN,DIRECT 0.2 mg/dL (0.0-0.2); BILIRUBIN,TOTAL 1.1 mg/dL (0.2-1.0); CALCIUM, SERUM 9.3 mg/dL (8.5-10.1); CHLORIDE 107 mmol/L (98-107); CREATININE 0.9 mg/dL (0.6-1.3); GLUCOSE 112 mg/dL (74-106); NT-PRO BNP 119 pg/mL (0-125); POTASSIUM 4.3 mmol/L (3.5-5.1); SODIUM SERUM 140 mmol/L (136-145); TOTAL PROTEIN, SERUM 6.7 g/dL (6.4-8.2); UREA NITROGEN, BLOOD 28 mg/dL (7-18)
[2024-07-04 16:36] LABS: CARBON DIOXIDE 29 mmol/L (21-32)
[2024-07-04 16:58] LABS: INR 1.01 (0.91-1.10); PARTIAL THROMBOPLASTIN TIME 28.5 SEC (24.3-34.3); PROTHROMBIN TIME 10.7 SECS (9.2-11.1)
[2024-07-04] MEDS ORDERED: ONDANSETRON HCL/PF 4 MG/2 ML VIAL IVP PRN (18:00)
[2024-07-04] MEDS ORDERED: Z GUARD REMEDY 4 OZ OINT TP PRN (18:00)
[2024-07-04] MEDS ORDERED: ZOLPIDEM TARTRATE 5 MG TABLET PO PRN (18:00)
[2024-07-04] MEDS ORDERED: ACETAMINOPHEN 325 MG TABLET PO PRN (18:00)
[2024-07-04] MEDS ORDERED: MAG HYDROX/AL HYDROX/SIMETH 30 ML UDC PO PRN (18:00)
[2024-07-04] MEDS ORDERED: MAGNESIUM HYDROXIDE 30 ML UDC PO PRN (18:00)
[2024-07-04 20:00] VITALS: BP 121/63; TEMP 97.5; O2SAT 97
[2024-07-04] MEDS: ENOXAPARIN SODIUM 40 MG/0.4 ML DISP.SYRIN SQ SCH (20:18)
[2024-07-04] MEDS: FUROSEMIDE 40 MG/4 ML VIAL IV SCH (20:18)
[2024-07-04] MEDS: CEFTRIAXONE 1 G in IV D5W 50 ML IV SCH (20:20)
[2024-07-04] MEDS: VANCOMYCIN 750 MG in IV D5W 250 ML IV ONE (20:21)
[2024-07-05] MEDS: VANCOMYCIN 750 MG in IV D5W 250 ML IV SCH (06:20)
[2024-07-05 07:44] LABS: BASOPHILS % (AUTO) 0.4 % (0.0-2.0); EOSINOPHILS # (AUTO) 0.1 K/uL (0.0-0.7); EOSINOPHILS % (AUTO) 1.4 % (0.0-6.0); HEMATOCRIT 43 % (39-51); HEMOGLOBIN 14.6 g/dL (13.5-17.5); LYMPHOCYTES # (AUTO) 1.2 K/uL (0.8-4.8); LYMPHOCYTES % (AUTO) 11.8 % (20.0-44.0); MEAN CORPUSCULAR HEMOGLOBIN 30 PG (26.0-33.0); MEAN CORPUSCULAR HGB CONC 34 g/dl (31.0-36.0); MEAN CORPUSCULAR VOLUME 89 fL (80-96); MONOCYTES # (AUTO) 0.8 K/uL (0.1-1.30); MONOCYTES % (AUTO) 8.3 % (2.0-12.0); NEUTROPHILS # (AUTO) 7.8 K/uL (1.8-8.9); NEUTROPHILS % (AUTO) 78.1 % (43.0-81.0); PLATELET COUNT (AUTO) 201 K/uL (150-450); RED BLOOD CELL COUNT(AUTO) 4.85 MIL/uL (4.5-6.0); RED CELL DISTRIBUTION WIDTH 14.4 % (11.5-15.0)
[2024-07-05 08:00] VITALS: BP 107/72; TEMP 98.2; O2SAT 94
[2024-07-05 08:10] LABS: CALCIUM, SERUM 9.6 mg/dL (8.5-10.1); MAGNESIUM 2.3 mg/dL (1.8-2.4); PHOSPHORUS 3.2 mg/dL (2.5-4.9)
[2024-07-05] MEDS: PANTOPRAZOLE 40 MG TABLET.DR PO SCH (08:26)
[2024-07-05 12:50] VITALS: BP 137/77; O2SAT 97
[2024-07-05 16:00] VITALS: BP 107/60; TEMP 98.1; O2SAT 98
[2024-07-05 20:00] VITALS: BP 106/68; TEMP 97.5; O2SAT 96
[2024-07-06] VITALS: BP 127/62; O2SAT 96
[2024-07-06 05:08] VITALS: BP 132/70; O2SAT 97
[2024-07-06] MEDS: VANCOMYCIN 1 GM in IV D5W 250ml IV SCH (06:00)
[2024-07-06 06:36] LABS: BASOPHILS % (AUTO) 0.2 % (0.0-2.0); EOSINOPHILS # (AUTO) 0.2 K/uL (0.0-0.7); EOSINOPHILS % (AUTO) 3.2 % (0.0-6.0); HEMATOCRIT 40 % (39-51); HEMOGLOBIN 13.7 g/dL (13.5-17.5); LYMPHOCYTES # (AUTO) 1.3 K/uL (0.8-4.8); LYMPHOCYTES % (AUTO) 18.1 % (20.0-44.0); MEAN CORPUSCULAR HEMOGLOBIN 30 PG (26.0-33.0); MEAN CORPUSCULAR HGB CONC 34 g/dl (31.0-36.0); MEAN CORPUSCULAR VOLUME 89 fL (80-96); MONOCYTES # (AUTO) 0.6 K/uL (0.1-1.30); MONOCYTES % (AUTO) 8.6 % (2.0-12.0); NEUTROPHILS # (AUTO) 4.9 K/uL (1.8-8.9); NEUTROPHILS % (AUTO) 69.9 % (43.0-81.0); PLATELET COUNT (AUTO) 188 K/uL (150-450); RED CELL DISTRIBUTION WIDTH 14.2 % (11.5-15.0)
[2024-07-06 07:05] LABS: BILIRUBIN,TOTAL 0.9 mg/dL (0.2-1.0); CALCIUM, SERUM 9.3 mg/dL (8.5-10.1); MAGNESIUM 2.3 mg/dL (1.8-2.4); PHOSPHORUS 3.1 mg/dL (2.5-4.9); POTASSIUM 3.7 mmol/L (3.5-5.1)
[2024-07-06 08:36] VITALS: BP 137/65; TEMP 97.7; O2SAT 97
[2024-07-06] MEDS: VITAMINS A AND D 56.7 GM TUBE TP PRN (12:46)
[2024-07-06 16:00] VITALS: BP 120/70; TEMP 96.4; O2SAT 97
[2024-07-06 20:00] VITALS: BP 122/71; TEMP 98.2; O2SAT 100
[2024-07-07 06:45] LABS: CALCIUM, SERUM 9.1 mg/dL (8.5-10.1); POTASSIUM 3.5 mmol/L (3.5-5.1)
[2024-07-07 08:00] VITALS: BP 138/86; TEMP 98.1; O2SAT 98
[2024-07-07] MEDS ORDERED: VANCOMYCIN 750 MG in IV D5W 250 ML IV SCH (20:00)
== END 2024-07-07 17:17 | DRG 603 ==
LOC: ER 15:08 → MED 18:46
DX: L03.115 Cellulitis of right lower limb (principal); E44.1 Mild protein-calorie malnutrition; L03.116 Cellulitis of left lower limb; G30.9 Alzheimer's disease, unspecified; F02.80 Dementia in other diseases classified elsewhere, unspecified severity, without behavioral disturbance, psychotic disturbance, mood disturbance, and anxiety; I87.2 Venous insufficiency (chronic) (peripheral); Z86.16 Personal history of COVID-19; H35.039 Hypertensive retinopathy, unspecified eye; Z87.19 Personal history of other diseases of the digestive system; I10 Essential (primary) hypertension; Z79.899 Other long term (current) drug therapy; M19.90 Unspecified osteoarthritis, unspecified site; R79.89 Other specified abnormal findings of blood chemistry; Z86.79 Personal history of other diseases of the circulatory system; R62.7 Adult failure to thrive; E88.09 Other disorders of plasma-protein metabolism, not elsewhere classified; L85.3 Xerosis cutis
CPT/HCPCS: 36415; 71045-TC; 80048-TC; 80053-TC; 80076-TC; 80202-TC; 83605-TC; 83735-TC; 83880; 84100-TC; 84484-TC; 85025-TC; 85730-TC; 87040-TC; 93307-TC; A4223; A6403; G0378; J0692; J0696; J1650; J1940; J3370; J3371; J7030; J7050; J7060

== ENCOUNTER 2024-10-14 18:28 | Inpatient (IN) | payer MEDICARE, OTHER ==
[~2024-10-14] VITALS: Ht 172.7 cm; Wt 93.0 kg
[~2024-10-14 18:28] MED LIST changes: +ACET-73 PO; -FURO-144 PO; +MAGN400O6 PO; -PANT40TA49 PO; -VANC750F2 IV
[2024-10-14 18:53] LABS: BASOPHILS % (AUTO) 0.3 % (0.0-2.0); EOSINOPHILS # (AUTO) 0.2 K/uL (0.0-0.7); EOSINOPHILS % (AUTO) 1.8 % (0.0-6.0); HEMATOCRIT 42 % (39-51); HEMOGLOBIN 13.8 g/dL (13.5-17.5); LYMPHOCYTES # (AUTO) 1.2 K/uL (0.8-4.8); LYMPHOCYTES % (AUTO) 13.8 % (20.0-44.0); MEAN CORPUSCULAR HEMOGLOBIN 28 PG (26.0-33.0); MEAN CORPUSCULAR HGB CONC 33 g/dl (31.0-36.0); MEAN CORPUSCULAR VOLUME 85 fL (80-96); MONOCYTES # (AUTO) 0.7 K/uL (0.1-1.30); NEUTROPHILS # (AUTO) 6.4 K/uL (1.8-8.9); NEUTROPHILS % (AUTO) 76.1 % (43.0-81.0); PLATELET COUNT (AUTO) 235 K/uL (150-450); RED BLOOD CELL COUNT(AUTO) 4.88 MIL/uL (4.5-6.0); RED CELL DISTRIBUTION WIDTH 14.5 % (11.5-15.0); WHITE BLOOD COUNT (AUTO) 8.4 K/uL (4.3-11.0)
[2024-10-14 19:36] LABS: CALCIUM, SERUM 9.2 mg/dL (8.5-10.1); POTASSIUM 4.1 mmol/L (3.5-5.1)
[2024-10-14] MEDS ORDERED: VANCOMYCIN 1 GM /D5W 250 ML PB IV ONE (19:41)
[2024-10-14] MEDS: VANCOMYCIN 1 GM in IV D5W 250 ML IV ONE (19:46)
[2024-10-14 19:51] LABS: ALBUMIN 2.8 g/dL (3.4-5.0); BILIRUBIN,TOTAL 0.5 mg/dL (0.2-1.0); TOTAL PROTEIN, SERUM 7.2 g/dL (6.4-8.2)
[2024-10-14] MEDS ORDERED: Z GUARD REMEDY 4 OZ OINT TP PRN (20:30)
[2024-10-14] MEDS ORDERED: ONDANSETRON HCL/PF 4 MG/2 ML VIAL IVP PRN (20:30)
[2024-10-14] MEDS ORDERED: MAG HYDROX/AL HYDROX/SIMETH 30 ML UDC PO PRN (20:30)
[2024-10-14] MEDS ORDERED: MAGNESIUM HYDROXIDE 30 ML UDC PO PRN (20:30)
[2024-10-14] MEDS ORDERED: HYDROCODONE/APAP 10/325MG TABLET PO PRN (20:30)
[2024-10-14] MEDS ORDERED: ZOLPIDEM TARTRATE 5 MG TABLET PO PRN (20:30)
[2024-10-14] MEDS ORDERED: CEFTRIAXONE 1GM BAG (ER ONLY) 50 ML IV ONE (23:01)
[2024-10-14] MEDS: CEFTRIAXONE 1 G in IV D5W 50 ML IV SCH (23:03)
[2024-10-14] MEDS: ENOXAPARIN SODIUM 40 MG/0.4 ML DISP.SYRIN SQ SCH (23:07)
[2024-10-15] MEDS: ACETAMINOPHEN 325 MG TABLET PO PRN (04:32)
[2024-10-15 06:26] LABS: BASOPHILS % (AUTO) 0.4 % (0.0-2.0); EOSINOPHILS # (AUTO) 0.1 K/uL (0.0-0.7); EOSINOPHILS % (AUTO) 1.3 % (0.0-6.0); HEMATOCRIT 38 % (39-51); HEMOGLOBIN 12.9 g/dL (13.5-17.5); LYMPHOCYTES # (AUTO) 1.1 K/uL (0.8-4.8); LYMPHOCYTES % (AUTO) 14.3 % (20.0-44.0); MEAN CORPUSCULAR HEMOGLOBIN 28 PG (26.0-33.0); MEAN CORPUSCULAR HGB CONC 34 g/dl (31.0-36.0); MEAN CORPUSCULAR VOLUME 83 fL (80-96); MONOCYTES # (AUTO) 0.6 K/uL (0.1-1.30); MONOCYTES % (AUTO) 7.9 % (2.0-12.0); NEUTROPHILS # (AUTO) 5.8 K/uL (1.8-8.9); NEUTROPHILS % (AUTO) 76.1 % (43.0-81.0); PLATELET COUNT (AUTO) 234 K/uL (150-450); RED BLOOD CELL COUNT(AUTO) 4.59 MIL/uL (4.5-6.0); RED CELL DISTRIBUTION WIDTH 14.2 % (11.5-15.0); WHITE BLOOD COUNT (AUTO) 7.6 K/uL (4.3-11.0)
[2024-10-15 06:40] LABS: CALCIUM, SERUM 8.9 mg/dL (8.5-10.1); CREATININE 0.9 mg/dL (0.6-1.3); MAGNESIUM 2.4 mg/dL (1.8-2.4); PHOSPHORUS 2.5 mg/dL (2.5-4.9); POTASSIUM 3.7 mmol/L (3.5-5.1)
[2024-10-15 07:30] VITALS: BP 130/74; TEMP 97.7; O2SAT 96
[2024-10-15] MEDS ORDERED: ACET325T53 PO (07:51)
[2024-10-15] MEDS ORDERED: PANT40TA49 PO (07:51)
[2024-10-15] MEDS ORDERED: FURO40TA5 PO (07:51)
[2024-10-15] MEDS ORDERED: NA P133E RC (07:51)
[2024-10-15] MEDS ORDERED: MULT-213 PO (07:51)
[2024-10-15] MEDS: CHOLECALCIFEROL 1,000 UNIT TABLET (VIT D3) PO SCH (08:12)
[2024-10-15] MEDS: SENNOSIDES 8.6 MG TABLET PO SCH (08:12)
[2024-10-15] MEDS: DOCUSATE SODIUM 100 MG CAPSULE PO SCH (08:12)
[2024-10-15] MEDS: VANCOMYCIN 1 GM in IV D5W 250 ML IV SCH (08:13)
[2024-10-15 16:00] VITALS: BP 138/78; TEMP 98.2; O2SAT 96
[2024-10-15] MEDS: FUROSEMIDE 40 MG TABLET PO SCH (16:12)
[2024-10-15 20:23] VITALS: BP 137/63; TEMP 97.7; O2SAT 96
[2024-10-15] MEDS: VANCOMYCIN 750 MG in IV D5W 250 ML IV SCH (20:50)
[2024-10-16 07:06] LABS: CALCIUM, SERUM 9.1 mg/dL (8.5-10.1); CREATININE 0.9 mg/dL (0.6-1.3); MAGNESIUM 2.6 mg/dL (1.8-2.4); PHOSPHORUS 2.8 mg/dL (2.5-4.9)
[2024-10-16] MEDS: PANTOPRAZOLE 40 MG TABLET.DR PO SCH (08:21)
[2024-10-16] MEDS: MULTIVIT W/MINERALS 1 TAB TABLET PO SCH (08:21)
[2024-10-16 08:39] VITALS: BP 146/73; TEMP 98.2; O2SAT 95
[2024-10-16 16:14] VITALS: BP 134/67; TEMP 98; O2SAT 95
[2024-10-16 20:00] VITALS: BP 153/83; TEMP 98.1; O2SAT 97
[2024-10-17 07:03] LABS: BASOPHILS % (AUTO) 0.3 % (0.0-2.0); EOSINOPHILS # (AUTO) 0.2 K/uL (0.0-0.7); EOSINOPHILS % (AUTO) 3.6 % (0.0-6.0); HEMATOCRIT 40 % (39-51); HEMOGLOBIN 13.9 g/dL (13.5-17.5); LYMPHOCYTES # (AUTO) 1.3 K/uL (0.8-4.8); LYMPHOCYTES % (AUTO) 19.8 % (20.0-44.0); MEAN CORPUSCULAR HEMOGLOBIN 29 PG (26.0-33.0); MEAN CORPUSCULAR HGB CONC 35 g/dl (31.0-36.0); MEAN CORPUSCULAR VOLUME 84 fL (80-96); MONOCYTES # (AUTO) 0.5 K/uL (0.1-1.30); MONOCYTES % (AUTO) 7.9 % (2.0-12.0); NEUTROPHILS # (AUTO) 4.6 K/uL (1.8-8.9); NEUTROPHILS % (AUTO) 68.4 % (43.0-81.0); PLATELET COUNT (AUTO) 249 K/uL (150-450); RED BLOOD CELL COUNT(AUTO) 4.79 MIL/uL (4.5-6.0); RED CELL DISTRIBUTION WIDTH 14.4 % (11.5-15.0); WHITE BLOOD COUNT (AUTO) 6.8 K/uL (4.3-11.0)
[2024-10-17 07:12] LABS: CALCIUM, SERUM 8.9 mg/dL (8.5-10.1); CREATININE 0.9 mg/dL (0.6-1.3); POTASSIUM 4.1 mmol/L (3.5-5.1)
[2024-10-17] MEDS: THERAHONEY GEL 1.5 OZ TUBE TP SCH (08:30)
[2024-10-17 08:32] VITALS: BP 158/88; TEMP 98.3; O2SAT 99
[2024-10-17 11:16] LABS: INR 1.01 (0.91-1.10); PARTIAL THROMBOPLASTIN TIME 30.2 SEC (24.3-34.3); PROTHROMBIN TIME 10.7 SECS (9.2-11.1)
[2024-10-17 16:05] VITALS: BP 124/72; TEMP 98.2; O2SAT 96
[2024-10-17 16:08] VITALS: BP 124/72; TEMP 98.2; O2SAT 96
[2024-10-17 20:00] VITALS: BP 114/69; TEMP 98.1; O2SAT 97
[2024-10-18 07:20] LABS: CALCIUM, SERUM 8.9 mg/dL (8.5-10.1); POTASSIUM 4.1 mmol/L (3.5-5.1)
[2024-10-18 07:30] VITALS: BP 141/86; TEMP 97.6; O2SAT 98
[2024-10-18 16:00] VITALS: BP 139/80; TEMP 97.2; O2SAT 95
[2024-10-18 20:00] VITALS: BP 118/70; TEMP 98.1; O2SAT 94
[2024-10-18] MEDS: VANCOMYCIN HCL 1.25 GM in IV D5W 250 ML IV SCH (22:00)
[2024-10-19 06:51] LABS: CALCIUM, SERUM 8.9 mg/dL (8.5-10.1); POTASSIUM 3.9 mmol/L (3.5-5.1)
[2024-10-19 07:30] VITALS: BP 137/78; TEMP 98.1; O2SAT 95
[2024-10-19] MEDS ORDERED: CEFT1VIA15 IV (11:20)
[2024-10-19] MEDS ORDERED: DOXY-326 PO (11:20)
== END 2024-10-19 16:30 | disposition home health service (06) | DRG 571 ==
LOC: ER 18:36 → MED 20:32
PROVIDERS: ADMIT Nurse Practitioner Acute Care; ATTEND Nurse Practitioner Family
PROC: 0JBP0ZZ Excision of Left Lower Leg Subcutaneous Tissue and Fascia, Open Approach (ICD-10-PCS; principal; 2024-10-19)
PROC: 0JBN0ZZ Excision of Right Lower Leg Subcutaneous Tissue and Fascia, Open Approach (ICD-10-PCS; 2024-10-19)
DX: L03.115 Cellulitis of right lower limb (principal); E44.0 Moderate protein-calorie malnutrition; L97.929 Non-pressure chronic ulcer of unspecified part of left lower leg with unspecified severity; L97.819 Non-pressure chronic ulcer of other part of right lower leg with unspecified severity; I87.313 Chronic venous hypertension (idiopathic) with ulcer of bilateral lower extremity; L97.829 Non-pressure chronic ulcer of other part of left lower leg with unspecified severity; G93.40 Encephalopathy, unspecified; L03.116 Cellulitis of left lower limb; G62.9 Polyneuropathy, unspecified; F03.90 Unspecified dementia, unspecified severity, without behavioral disturbance, psychotic disturbance, mood disturbance, and anxiety; I87.2 Venous insufficiency (chronic) (peripheral); I87.8 Other specified disorders of veins; Z86.16 Personal history of COVID-19; I10 Essential (primary) hypertension; E88.09 Other disorders of plasma-protein metabolism, not elsewhere classified; E66.9 Obesity, unspecified; Z68.31 Body mass index [BMI] 31.0-31.9, adult; M19.90 Unspecified osteoarthritis, unspecified site; H35.033 Hypertensive retinopathy, bilateral; Z79.899 Other long term (current) drug therapy; L02.416 Cutaneous abscess of left lower limb; L02.415 Cutaneous abscess of right lower limb; I89.0 Lymphedema, not elsewhere classified; I73.9 Peripheral vascular disease, unspecified; H26.9 Unspecified cataract; R79.89 Other specified abnormal findings of blood chemistry
CPT/HCPCS: 36415; 71045-TC; 80048-TC; 80053-TC; 80202-TC; 83735-TC; 83880; 84100-TC; 84484-TC; 85025-TC; 85610-TC; 85730-TC; 87040-TC; 87081-TC; 93970-TC; A4223; A6253; A6403; G0378; J0696; J1650; J3370; J3371; J7050; J7060